=== PATIENT | female | born 2000 | race Caucasian/White ===

== ENCOUNTER 2022-12-08 18:10 | Emergency (ER) | payer SELFPAY ==
[2022-12-08] MEDS ORDERED: Ketorolac 30 MG/ML SDV IM ONE (18:35)
[2022-12-08] MEDS ORDERED: Meperidine PF 25 MG/ML Syringe IM ONE (18:53)
== END 2022-12-08 19:30 | disposition home or self-care (01) ==
LOC: KA.ED 18:10
DX: K08.89 Other specified disorders of teeth and supporting structures (principal); Z88.2 Allergy status to sulfonamides
CPT/HCPCS: 96372; 99282; J1885; J2175; 99283